=== PATIENT | female | born 2005 | race African-American/Black ===

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

== ENCOUNTER 2025-03-26 08:42 | Emergency (ER) | payer OTHER ==
[~2025-03-26] VITALS: Ht 167.6 cm; Wt 59.0 kg
[~2025-03-26 08:42] MED LIST: IBUP-2030 MT
[2025-03-26 08:45] VITALS: BP 113/75; PULSE 90; RESP 20; TEMP 36.9; O2SAT 98
[2025-03-26] MEDS: SODIUM CHLORIDE 0.9% 1,000 ML IV ONE (08:59)
[2025-03-26] MEDS: ONDANSETRON HCL 4MG/2ML INJ IV STA (08:59)
== END 2025-03-26 09:59 | disposition left against medical advice (07) ==
LOC: ER 08:42
DX: R11.2 Nausea with vomiting, unspecified (principal); F41.9 Anxiety disorder, unspecified; K21.9 Gastro-esophageal reflux disease without esophagitis; Z91.09 Other allergy status, other than to drugs and biological substances
CPT/HCPCS: 99283; J7030; Z7610; 99284; 99291; J2405